=== PATIENT | male | born 1985 | race Caucasian/White ===

== ENCOUNTER 2022-09-14 17:36 | Emergency (ER) | payer MEDICARE, SELFPAY ==
[2022-09-14] VITALS (9 sets, daily range): BP systolic 149; BP diastolic 95; PULSE 100–124; RESP 19–30; TEMP 36.3; O2SAT 87–100; BMI 35.6
--- NOTE | 2022-09-14 17:56 | EKG12_ITS ---
Test Reason : OD Blood Pressure : / mmHG Vent. Rate : 120 BPM Atrial Rate : 120 BPM P-R Int : 140 ms QRS Dur : 076 ms QT Int : 340 ms P-R-T Axes : 064 052 061 degrees QTc Int : 480 ms Sinus tachycardia Otherwise normal ECG No previous ECGs available Confirmed by JENNIFER EARLY, DIAN ([id number]), online editor HUE [place] ([id number]) on 09/17/2022 11:11:49 AM Referred By: Confirmed By:DIAN RODRIGUEZ MD
--- NOTE | 2022-09-14 17:58 | EX.ED.VIS.PS ---
HPI HPI - Psych History of Present Illness Chief Complaint: Suicidal Detail of Chief Complaint: Suicidal ideation with attempt Informant: patient and EMS Narrative Narrative: Patient presents to the emergency department after a suicidal attempt. Patient presents from home via EMS. Patient apparently had his girlfriend break-up with him recently. EMS found a suicide note. Patient states that he took 20 to 2310 mg Ambien tablets and drank 4 shots of whiskey. Apparently these were his Ambien. He denies ingesting anything else. He denies drug use. Patient tells me he does not know what happened. Patient denies auditory or visual hallucinations. Patient tells me he does not feel good. Patient not very forthcoming with information. [facility] Medical History (Updated 09/14/22 @ 22:[address] Debbie Paez DO) Anxiety Bipolar disorder Depression Alie PTSD (post-traumatic stress disorder) Suicidal ideation Home Medications baclofen 5 mg tablet 5 mg PO DAILY 09/14/22 [History Last Taken Unknown] cetirizine 10 mg tablet 10 mg PO DAILY 09/14/22 [History Last Taken Unknown] duloxetine 60 mg capsule,delayed release 60 mg PO DAILY 09/14/22 [History Last Taken Unknown] valacyclovir 1 gram tablet 1,000 mg PO DAILY 09/14/22 [History Last Taken Unknown] zolpidem 10 mg tablet 10 mg PO QHS PRN Sleep 09/14/22 [History Last Taken Unknown] Allergy/AdvReac Type Severity Reaction Status Date / Time No Known Allergies Allergy Verified 09/14/22 21:09 Social History Smoking Status: Never smoker ROS ROS ED Review of Systems ROS Unobtainable: other Constitutional Constitutional ED: Reports lethargy; Denies chills, fever(s), sweats or weight loss Eyes Eyes: Denies blurry vision, change in vision or diplopia ENT ENT ED: Denies rhinorrhea or sore throat Cardiovascular Cardiovascular: Reports chest pain and racing heartbeat; Denies orthopnea Respiratory/Chest Respiratory/Chest: Reports dyspnea and dyspnea on exertion; Denies cough, orthopnea or sputum Gastrointestinal Gastrointestinal: Denies abdominal pain, diarrhea, nausea or vomiting Genitourinary Genitourinary ED: Denies dysuria, hematuria or urinary frequency Musculoskeletal Musculoskeletal: Denies arthralgias, back pain, myalgias or neck pain Integumentary Denies abscess, Abrasions or rash Neurologic Neurologic: Denies headache(s) or weakness Psychiatric Psychiatric: Reports depression, suicidal ideation and suicidal thoughts; Denies anxiety Endocrine Endocrinology: Denies polydipsia, polyphagia or polyuria Hematologic/Lymphatic Hematologic/Lymphatic: Denies easy bleeding, easy bruising or lymphadenopathy Allergic/Immunologic Allergic/Immunologic ED: Denies mouth swelling, tongue swelling or urticaria EXAM Physical Exam Const Vital Signs: 09/14/22 17:38 09/14/22 17:50 09/14/22 18:49 Temperature 97.3 F L Temperature Source Temporal Pulse Rate 120 H Respiratory Rate 27 H Blood Pressure 149/95 H Blood Pressure Mean 113 Pulse Ox 97 94 Oxygen Delivery Method Room Air Oxygen Flow Rate (L/min) 09/14/22 19:18 09/14/22 20:12 09/14/22 19:00 Temperature Temperature Source Pulse Rate 110 H 111 H Respiratory Rate 30 H Blood Pressure Blood Pressure Mean Pulse Ox 96 100 87 Oxygen Delivery Method Nasal Cannula Nasal Cannula Room Air Oxygen Flow Rate (L/min) 2 2 09/14/22 21:01 09/14/22 22:04 09/14/22 23:18 Temperature Temperature Source Pulse Rate 100 124 H 115 H Respiratory Rate 19 H Blood Pressure Blood Pressure Mean Pulse Ox 100 100 100 Oxygen Delivery Method Room Air Room Air Room Air Oxygen Flow Rate (L/min) Positive well nourished and well developed General Appearance ED: well developed and NAD HEENT Reports TM's clear and moist mucous membranes normocephalic and atraumatic; Negative for trauma or tenderness Tympanic Membrane ED: Yes TM's clear Eyes PERRL and EOMs intact bilaterally General Eye ED: Negative for pale conjunctiva or scleral icterus Neck no lymphadenopathy, supple and no JVD General: Negative for tenderness Chest Wall inspection of chest normal and palpation of chest normal Chest: Negative for tenderness Resp normal respiratory effort and clear to auscultation bilaterally Effort and Inspection: Negative for respiratory distress or pain with movement Auscultation: Negative for rhonchi, wheezes or diminished lung sounds Cardio regular rhythm, S1 normal heart sound, S2 normal heart sound and no murmurs Rate: tachycardic Peripheral Pulses: pulses 2+ throughout GI normal to inspection, nondistended, normoactive bowel sounds, soft to palpation, non-tender, non-distended and no masses Back/Spine no CVA tenderness and no thoracic nor lumbar tenderness Extremity normal to inspection General Extremety ED: Negative for edema General Extremity: Negative for edema Neuro oriented x3, CN's II-XII intact bilaterally, no sensory deficits noted and gait normal Sensorium / Orientation: awake, alert, oriented to person, oriented to place and oriented to time Motor Exam: strength 5/5 throughout and strength abnormal Psych mental status grossly normal Skin no rashes or lesions noted and no wounds MDM MDM MDM Narrative Medical decision making narrative: IV line is established on arrival. CBC with differential was unremarkable. Chemistries unremarkable. Salicylate level was normal and acetaminophen level was negative. Alcohol was 10. Toxicology screen was negative. After evaluating the patient immediately discussed case with poison control. They recommended observing the patient for respiratory deterioration for 6 hours from ingestion. At this time patient is medically cleared for transfer to psychiatric facility. Crisis will evaluate patient for placement. Care of patient turned over to night physician awaiting evaluation by crisis and final disposition to psychiatric facility. Lab Data Attestation: I reviewed the patient's lab results. Labs: Laboratory Results - last 24 hr 09/14/22 09/14/22 09/14/22 18:05 18:05 18:05 WBC 8.1 RBC 5.36 Hgb 15.4 Hct 45.5 MCV 84.9 MCH 28.7 MCHC 33.8 RDW Std Deviation 41.4 RDW Coeff of Brenda 13.4 Plt Count 265 MPV 12.3 H Immature Gran % (Auto) 0.200 Neut % (Auto) 74.5 H Lymph % (Auto) 16.8 L [place] % (Auto) 7.8 Eos % (Auto) 0.2 Baso % (Auto) 0.5 Absolute Neuts (auto) 6.0 Absolute Lymphs (auto) 1.36 Nucleated RBC % 0 Sodium 139 Potassium 3.4 L Chloride 105 Carbon Dioxide 28.0 Anion Gap 6 BUN 15 Creatinine 0.86 Estim Creat Clear Calc 92.81 Est GFR (MDRD) Af Amer 127 Est GFR (MDRD) Non-Af 105 BUN/Creatinine Ratio 17.4 Glucose 96 Calcium 9.6 Salicylates < 1.7 L Urine Opiates Screen Urine Methadone Screen Acetaminophen < 2.0 L Ur Barbiturates Screen Ur Phencyclidine Scrn Ur Amphetamines Screen MDMA (Ecstasy) Screen U Benzodiazepines Scrn Urine Cocaine Screen U Cannabinoids Screen Ur Drug Screen Comment Ethyl Alcohol 10.0 09/14/22 21:10 WBC RBC Hgb Hct MCV MCH MCHC RDW Std Deviation RDW Coeff of Brenda Plt Count MPV Immature Gran % (Auto) Neut % (Auto) Lymph % (Auto) [place] % (Auto) Eos % (Auto) Baso % (Auto) Absolute Neuts (auto) Absolute Lymphs (auto) Nucleated RBC % Sodium Potassium Chloride Carbon Dioxide Anion Gap BUN Creatinine Estim Creat Clear Calc Est GFR (MDRD) Af Amer Est GFR (MDRD) Non-Af BUN/Creatinine Ratio Glucose Calcium Salicylates Urine Opiates Screen NEGATIVE Urine Methadone Screen NEGATIVE Acetaminophen Ur Barbiturates Screen NEGATIVE Ur Phencyclidine Scrn NEGATIVE Ur Amphetamines Screen NEGATIVE MDMA (Ecstasy) Screen NEGATIVE U Benzodiazepines Scrn NEGATIVE Urine Cocaine Screen NEGATIVE U Cannabinoids Screen NEGATIVE Ur Drug Screen Comment Ethyl Alcohol EKG Initial EKG: Attestation: I personally reviewed and interpreted this EKG as follows: Comments: Sinus rhythm with a rate of 120 bpm with no acute ST segment changes Discharge Plan Triage Chief Complaint: Suicidal ED Provider: Debbie Paez Dx/Rx/DC Orders Clinical Impression: Depression, Suicidal ideation, Drug overdose, intentional Prescriptions: No Action zolpidem 10 mg Tablet 10 mg PO QHS PRN (Reason: Sleep) cetirizine 10 mg Tablet 10 mg PO DAILY valacyclovir 1 gram Tablet 1,000 mg PO DAILY duloxetine 60 mg Capsule,Delayed Release(Dr/Ec) 60 mg PO DAILY baclofen 5 mg Tablet 5 mg PO DAILY Disposition Disposition: DC/Tx to Another Type of HCF
[2022-09-14 18:12] LABS: Absolute Lymphocyte Count 1.36 X10^3/uL (0.83-4.51); Basophil# 0.04 X10^3/uL; Basophil% 0.5 % (0-1); Eosinophil# 0.02 X10^3/uL; Eosinophils% 0.2 % (0-5); Hematocrit 45.5 % (40-54); Hemoglobin 15.4 g/dL (13.0-16.5); Lymphocyte # 1.36 X10^3/ul (0.83-4.51); Lymphocyte % 16.8 % (19-41); Mean Corp Hgb Conc 33.8 g/dL (32-36); Mean Corpuscular Hgb 28.7 pg (27.0-32.0); Mean Corpuscular Volume 84.9 fL (80-94); Mean Platelet Vol. 12.3 fl (6.2-12.0); Monocyte# 0.63 X10^3/uL; Monocyte% 7.8 % (0-10); NRBC Flagged by Analyzer 0 % (0-5); Neutrophil # 6.01 X10^3/uL (2.7-7.7); Neutrophil % 74.5 % (47-70); Platelet Count 265 K/mm3 (150-450); RBC Distribution Width CV 13.4 % (11.6-14.6); RBC Distribution Width SD 41.4 fl (35.1-43.9); Red Blood Count 5.36 M/mm3 (4.6-6.2); White Blood Count 8.1 K/mm3 (4.4-11.0)
[2022-09-14 18:30] LABS: Anion Gap 6 (5-15); BUN 15 mg/dL (7-18); BUN/Creat Ratio 17.4 RATIO (10-20); Calcium,Total 9.6 mg/dL (8.5-10.1); Chloride 105 mmol/L (98-107); Creatinine, Serum 0.86 mg/dL (0.70-1.30); EST Glomerular Filtration Rate 105 mL/min (>60); Est Glom Filt Rate - Afr Amer 127 mL/min (>60); Estimated Creatinine Clearance 92.81 ml/min; Glucose 96 mg/dL (74-106); Potassium 3.4 mmol/L (3.5-5.1); Sodium Level 139 mmol/L (136-145)
--- NOTE | 2022-09-14 19:52 | CM.ED ---
KIMBERLY Note KIMBERLY called [place] [facility] and gave her report regarding patient. Patient is currently sleeping and unable to be interviewed. Handoff to Crisis. KIMBERLY faxed face sheet, Note and COVID screen to Crisis. Plan: Crisis to evaluate. Mahi WILLIS
[2022-09-14 20:53] LABS: Acetaminophen (Tylenol) Level < 2.0 ug/mL (10.0-30.0); Salicylate < 1.7 mg/dL (2.8-20.0)
--- NOTE | 2022-09-14 21:09 | ED.RN ---
poison control called and updated on patient status at this time. patient has been released from poison control
[2022-09-14 21:52] LABS: Amphetamine Urine VISTA NEGATIVE (<1000 ng/mL); Barbiturate Urine VISTA NEGATIVE (< 200 ng/mL); Benzodiazepine Urine VISTA NEGATIVE (< 200 ng/mL); Cocaine Urine VISTA NEGATIVE (< 300 ng/mL); Ecstacy Urine VISTA NEGATIVE (< 500 ng/mL); Methadone Urine VISTA NEGATIVE (< 300 ng/mL); PCP Urine VISTA NEGATIVE (< 25 ng/mL); THC Urine VISTA NEGATIVE (< 50 ng/mL); Vista UDS pH Range 5
[2022-09-15] VITALS (11 sets, daily range): BP systolic 137–158; BP diastolic 64–90; PULSE 87–99; RESP 14–18; O2SAT 97–99
--- NOTE | 2022-09-15 02:18 | ED.RN ---
patient pending at [facility]
--- NOTE | 2022-09-15 11:38 | CM.ED ---
Social Work Telephone call to nancy, Nanda. This social service director inquired about current status of case. Nanda reports that patient has been declined by [facility]. Nanda reports that patient is now pending [facility]. Nanda plans to reach out to [facility] to check on status of referral. Nanda to update this social service director with any new updates. Medical team updated. Will continue to follow. Justin GREENE, ARLEEN
--- NOTE | 2022-09-15 12:16 | CM.ED ---
Social Work Telephone call from Nanda cruz. Nanda reports to have checked status of case at [facility] and that patient continues to be pending approval. Nanda reports to have also sent referral to [facility]. Will continue to follow. Justin GREENE, ARLEEN
--- NOTE | 2022-09-15 15:05 | ED.RN ---
CRISIS CALLED STILL WAITING FOR TO ACCEPT AT [facility].
--- NOTE | 2022-09-15 16:21 | CM.ED ---
[facility] reports that patient has been accepted and will provide accepting information when pink slip is obtained. This social service assistant faxed pink slip to [phone]. Medical team and patient updated on above. Justin GREENE, ARLEEN
--- NOTE | 2022-09-15 18:32 | CM.ED ---
Social Work Telephone call from [facility] Kiesha. Patient has been accepted by Dr. Javier to room 3302. Nurse to call report to [phone]. This social director updated patient and medical team. Patient reports to have no one and declines for this social director to call support person in regards to patient transfer. Secratary to set up transportation. Telephone call to crisis, [place]. This social director update [place] on above information. PLAN: [facility], inpatient psych. Justin GREENE, JEFFRYS
[2022-09-16] VITALS: RESP 16
[2022-09-16 01:00] VITALS: RESP 15
[2022-09-16 05:08] VITALS: BP 138/79; PULSE 78; RESP 18; O2SAT 100
[2022-09-16 07:11] VITALS: RESP 16
--- NOTE | 2022-09-16 08:42 | ED.RN ---
THIS RN GAVE REPORT TO RIP MARCOS AT [facility]
[2022-09-16 08:43] VITALS: BP 129/84; PULSE 72; RESP 15; O2SAT 98
== END 2022-09-16 09:03 ==
PROVIDERS: Emergency Provider Emergency Medicine; Visit Provider Emergency Medicine
DX: T50.902A Poisoning by unspecified drugs, medicaments and biological substances, intentional self-harm, initial encounter (principal); R45.851 Suicidal ideations; F32.A Depression, unspecified; R07.9 Chest pain, unspecified
CPT/HCPCS: 80048; 80307; 80329; 82077; 85025; 87811; 93005; 99285; G0480